=== PATIENT | male | born 1975 | race Caucasian/White ===

== ENCOUNTER 2018-08-12 14:43 | Emergency (ER) | payer SELFPAY ==
[2018-08-12] MEDS ORDERED: NS 0.9% 1000 ML** 1,000 ML IV ONE (14:54)
--- NOTE | 2018-08-12 15:05 | ED ---
HPI Chest Pain - HPI Summary HPI Summary: This patient is a 42 year old M brought in by ambulance to [facility] with a chief complaint of left chest pressure with arm pain and tingling since 1300 with a witnessed syncopal event. Patient reports SOB with onset of symptoms that is currently resolved. Pain was 7/10 in severity which is now improved to a 4/10 with Nitrox1 and 324mg ASA provided by EMS. Patient denies nausea and vomiting, and recent calf pain. Reports history of angina with a negative stress test. FMHx of NE in father at age 55. Non-smoker. Drinks two beers daily. PMHx of hypotension. Denies DM and hypercholesterolemia. - History of Current Complaint Chief Complaint: EDChestPainROMI Time Seen by Provider: 08/12/18 14:54 Hx Obtained From: Patient Onset/Duration: Started Hours Ago Time of Onset: 13:00 Timing: Constant Initial Severity: Severe Current Severity: Moderate Pain Intensity: 4 Pain Scale Used: 0-10 Numeric Chest Pain Location: Left Anterior Chest Pain Radiates: Yes Chest Pain Radiates To:: Arm Character: Pressure/Squeezing Aggravating Factor(s): Nothing Alleviating Factor(s): EMS Tx Associated Signs and Symptoms: Positive: Chest Pain, Tingling, Shortness of Breath, Syncope - Allergy/Home Medications Allergies/Adverse Reactions: Allergies Allergy/AdvReac Type Severity Reaction Status Date / Time acetaminophen Allergy Anaphylatic Verified 08/12/18 14:49 [From Darvocet-N] Shock codeine Allergy Anaphylatic Verified 08/12/18 14:49 Shock meperidine [From Demerol] Allergy Anaphylatic Verified 08/12/18 14:49 Shock morphine Allergy Anaphylatic Verified 08/12/18 14:49 Shock Penicillins Allergy Anaphylatic Verified 08/12/18 14:49 Shock propoxyphene Allergy Anaphylatic Verified 08/12/18 14:49 [From Darvocet-N] Shock Home Medications: Home Medications NK [No Home Medications Reported] 08/12/18 [History Confirmed 08/12/18] PMH/Surg Hx/FS Hx/Imm Hx Endocrine/Hematology History: Denies: Hx Diabetes Cardiovascular History: Reports: Hx Hypotension Denies: Hx Coronary Artery Disease, Hx Hypercholesterolemia Infectious Disease History: No Infectious Disease History: Denies: Traveled Outside the [place] in Last 30 Days - Family History Known Family History: Positive: Cardiac Disease - NE father 55 - Social History Alcohol Use: Daily Alcohol Amount: 2x beers daily Substance Use Type: Reports: None Smoking Status (MU): Former Smoker Review of Systems Positive: Chest Pain Positive: Shortness Of Breath Positive: Myalgia - arm pain Positive: Syncope All Other Systems Reviewed And Are Negative: Yes Physical Exam - Summary Physical Exam Summary: VITAL SIGNS: Reviewed. GENERAL: Patient is a well-developed and nourished male who is lying comfortable in the stretcher. Patient is not in any acute respiratory distress. HEAD AND FACE: No signs of trauma. No ecchymosis, hematomas or skull depressions. No sinus tenderness. EYES: PERRLA, EOMI x 2, No injected conjunctiva, no nystagmus. EARS: Hearing grossly intact. Ear canals and tympanic membranes are within normal limits. MOUTH: Oropharynx within normal limits. NECK: Supple, trachea is midline, no adenopathy, no JVD, no carotid bruit, no c- spine tenderness, neck with full ROM. CHEST: Symmetric, no tenderness at palpation LUNGS: Clear to auscultation bilaterally. No wheezing or crackles. CVS: Regular rate and rhythm, S1 and S2 present, no murmurs or gallops appreciated. ABDOMEN: Soft, non-tender. No signs of distention. No rebound no guarding, and no masses palpated. Bowel sounds are normal. EXTREMITIES: FROM in all major joints, no edema, no cyanosis or clubbing. NEURO: Alert and oriented x 3. No acute neurological deficits. Speech is normal and follows commands. SKIN: Dry and warm. Triage Information Reviewed: Yes Vital Signs On Initial Exam: Initial Vitals Temp Pulse Resp BP Pulse Ox 98.4 F 68 17 118/76 97 08/12/18 14:46 08/12/18 14:46 08/12/18 14:46 08/12/18 14:46 08/12/18 14:46 Vital Signs Reviewed: Yes - Awais Coma Scale Best Eye Response: 4 - Spontaneous Best Motor Response: 6 - Obeys Commands Best Verbal Response: 5 - Oriented Coma Scale Total: 15 Diagnostics - Vital Signs Vital Signs Temp Pulse Resp BP Pulse Ox 08/12/18 14:57 98 08/12/18 14:55 65 15 98 08/12/18 14:46 98.4 F 66 11 118/76 98 - Laboratory Result Diagrams: 08/12/18 14:58 08/12/18 14:59 Lab Statement: Any lab studies that have been ordered have been reviewed, and results considered in the medical decision making process. - Radiology CXR Radiology Interpretation Completed By: Radiologist Summary of Radiographic Findings: No radiographic evidence for acute cardiopulmonary abnormality on this. portable chest x-ray. ED Physician has reviewed this report. - CT Brain CT CT Interpretation Completed By: Radiologist Summary of CT Findings: Normal CT of the Brain. ED Physician has reviewed this report. - EKG 1445 Cardiac Rate: NL - 64 BPM EKG Rhythm: Sinus Rhythm Summary of EKG Findings: No ST elevations. Nml axis. Chest Pain Course/Dx - Course Assessment/Plan: This patient is a 42 year old M brought in by ambulance to [facility] with a chief complaint of left chest pressure with arm pain and tingling since 1300 with a witnessed syncopal event. Patient reports SOB with onset of symptoms that is currently resolved. Pain was 7/10 in severity which is now improved to a 4/10 with Nitro x 1 and 324 mg ASA provided by EMS. Patient denies nausea and vomiting, and recent calf pain. Reports history of angina with a negative stress test. FMHx of NE in father at age 55. Non-smoker. Drinks two beers daily. PMHx of hypotension. Denies DM and hypercholesterolemia. Blood test results without any significant abnormality. Troponin 0.00. D- dimer is less than 200. Chest x-ray impression: No radiographic evidence for acute cardiopulmonary abnormality. Head CT impression: No acute pathology. I discuss my physical exam, findings and test results with Dr. Golden from the hospitalist services and he agrees to admit patient to his services. Patient is hemodynamically stable alert and oriented x 3. After the patient was admitted to the hospitalist he decided that he doesnt want to stay. Therefore he reports that he is going to sign himself out and has medical advice. I extensively discussed with the patient the benefits and risk of leaving AMA. I also discussed the alternatives to leaving AMA, however, the patient still insist to leave the hospital AMA. The patient is clinically sober, free from distracting injury, appears to have intact insight and judgment and reason and in my opinion has the capacity to make decisions. Patient has full capacity and is cognitively intact. The patient presents with chest pain and syncope, I have explained that I am concerned with Arrhythmia and ACS and may represent NE , cardiac sudden . The patient verbalizes the understanding of my concerns. I have also explained the results of the labs and even though they are normal. The primary nurse and the charge nurse also strongly recommended that the patient should not leave AMA. Patient understands the risk of leaving AMA, which includes but is not restricted to . Patient signed the AMA form. Patient was also advised to return to ED if he changes his mind or if the symptoms worsen or other symptoms appear. Patient understands and agrees. Again, I discussed all the findings and test results with the patient. Patient was instructed to return to the emergency room immediately if any of the symptoms return or worsens. Plan of care was discussed with the patient and understands and agrees. All questions were answered at patient satisfaction. There were no further complaints or concerns. Patient signed AMA and he was discharged AMA. - Diagnoses Provider Diagnoses: Chest pain, Syncope - Provider Notifications Discussed Care Of Patient With: Rosa Maria Rodriguez - hospitalist Time Discussed With Above Provider: 17:37 Instructed by Provider To: Admit As Inpatient Discharge - Sign-Out/Discharge Documenting (check all that apply): Patient Departure - admit - Discharge Plan Condition: Stable Disposition: ADMITTED TO [facility] Referrals: No Primary Care Phys,NOPCP [Primary Care Provider] - - Billing Disposition and Condition Condition: STABLE Disposition: Admitted to [facility] - Attestation Statements Document Initiated by Sixto: Yes Documenting Scribe: Sheri Moore Provider For Whom Sixto is Documenting (Include Credential): David Blackburn MD Scribe Attestation: ISheri, scribed for David Blackburn MD on 08/12/18 at 1810. Scribe Documentation Reviewed: Yes Provider Attestation: The documentation as recorded by the Sheri sr accurately reflects the service I personally performed and the decisions made by , David Blackburn MD Status of Scribe Document: Viewed
[2018-08-12 15:11] LABS: ABS Eosinophils 0.1 10^3/ul (0-0.6); ABS Lymphocytes 1.9 10^3/ul (1.0-4.8); ABS Monocytes 0.6 10^3/ul (0-0.8); ABS Neutrophils 4.8 10^3/ul (1.5-7.7); Eosinophil % 1.5 %; Hematocrit 43 % (42-52); Hemoglobin 14.3 g/dL (14.0-18.0); Lymphocyte % 25.7 %; Mean Corpuscular HGB Conc 34 g/dL (31-36); Mean Corpuscular Hemoglobin 29 pg (27-31); Mean Corpuscular Volume 87 fL (80-94); Mean Platelet Volume 9.5 fL (7.4-10.4); Nucleated Red Blood Cells % 0.1; Platelet Count 227 10^3/uL (150-450); Red Cell Distribution Width 13 % (10.5-15); White Blood Count 7.5 10^3/uL (3.5-10.8)
[2018-08-12 15:19] LABS: INR 0.92 (0.82-1.09)
[2018-08-12 15:29] LABS: Albumin 4.3 g/dL (3.2-5.2); Albumin/Globulin Ratio 1.7 (1-3); BUN/Creatinine Ratio 16.5 (8-20); Calcium 9.5 mg/dL (8.6-10.3); EGFR Non-African American 90.9 (>60); Globulin 2.5 g/dL (2-4); Magnesium 2.1 mg/dL (1.9-2.7); Potassium 4.2 mmol/L (3.5-5.0); Total Bilirubin 0.9 mg/dL (0.2-1.0); Total Protein 6.8 g/dL (6.4-8.9)
[2018-08-12 15:35] LABS: CKMB ng/mL 1.5 ng/mL (0.6-6.3)
[2018-08-12 16:45] LABS: TSH (Thyroid Stimulating Horm) 1.09 mcIU/mL (0.34-5.60)
[2018-08-12 17:56] VITALS: BP 130/85
== END 2018-08-12 18:12 | disposition left against medical advice (07) ==
LOC: ED 14:43
DX: R07.89 Other chest pain (principal); R55 Syncope and collapse; R20.2 Paresthesia of skin; R06.02 Shortness of breath; Z88.6 Allergy status to analgesic agent; Z88.5 Allergy status to narcotic agent; Z88.0 Allergy status to penicillin; Z82.49 Family history of ischemic heart disease and other diseases of the circulatory system; Z87.891 Personal history of nicotine dependence
CPT/HCPCS: 36415; 70450; 71045; 80053; 82550; 82553; 83735; 83880; 84443; 84484; 85025; 85379; 85610; 93005; 99283